=== PATIENT | female | born 1970 | race Caucasian/White ===

== ENCOUNTER 2017-02-11 10:49 | Emergency (ER) | payer OTHER ==
[~2017-02-11] VITALS: Ht 158.8 cm; Wt 59.0 kg
--- NOTE | ~2017-02-11 | CR181 ---
[facility] A Service of [facility] & [facility] RADIOLOGY TEXT RESULTS PATIENT: REBECCA PHILLIPS LOCATION: [facility] : 70 UNIT #: [id number] AGE: [address]: Susan Reilly APRN SEX: F ORDER DR: [id number] [facility] [address] [place], [place] [address] [id number] E MR#: [id number] Acc #: [id number] NAME: REBECCA PHILLIPS : 1970 SEX: F STUDY DATE/TIME: 02/11/2017 12:55 UNIT: [facility] ROOM: STUDY DESCRIPTION: CR Lumbar Spine 2 or 3 Views Attending Physician: Susan Reilly A.P.R.N. Ordering Physician: Ed John Villarreal M.D. Primary Care Physician: Stephania Daniels M.D. MEDICAL IMAGING REPORT This report is preliminary unless electronic signature is present EXAM Lumbar spine 3 views HISTORY Left-sided low back pain after falling off ladder this morning. FINDINGS There apparently are 6 [id number] lumbar segments. No fracture or malalignment. Disc spaces maintained. No spondylolysis on the basis. SI joints soft tissues appear normal. IMPRESSION Normal lumbar spine. Dictated by... Jacques Lynn M.D. THIS IS AN ELECTRONICALLY VERIFIED REPORT Jacques Lynn M.D. at 02/12/2017 1:32 PM SHAY/halina TD: 02/11/2017 22:38 JOB #: [id number] MEDICAL IMAGING REPORT Page 1 of 1 COPY
--- NOTE | ~2017-02-11 | CR126 ---
[facility] A Service of [facility] RADIOLOGY TEXT RESULTS PATIENT: REBECCA PHILLIPS LOCATION: [facility] : 70 UNIT #: [id number] AGE: [address]: Susan Reilly APRN SEX: F ORDER DR: [id number] [facility] [address] [place], [place] [address] [id number] E MR#: [id number] Acc #: [id number] NAME: REBECCA PHILLIPS : 1970 SEX: F STUDY DATE/TIME: 02/11/2017 11:27 UNIT: [facility] ROOM: STUDY DESCRIPTION: CR Foot Complete Min 3 View Lt Attending Physician: Susan Reilly A.P.R.N. Ordering Physician: Ed Doctor [id number] [facility] Primary Care Physician: Stephania Daniels M.D. MEDICAL IMAGING REPORT This report is preliminary unless electronic signature is present EXAM Left foot 3 views 02/11/2017 1127 hours HISTORY Patient fell off a ladder this morning. Pain and swelling in foot. Patient cannot move toes. Skin tear and redness at left knee. COMPARISON None. FINDINGS AP, lateral and oblique views demonstrate soft tissue swelling in the hindfoot with a comminuted nondisplaced fracture of the calcaneus with extension into the subtalar joint demonstrated. No other fracture seen. Follow up CT scan is recommended. IMPRESSION There is a comminuted nondisplaced fracture of the calcaneus in the mid and anterior portion which appears to extend into the subtalar joints. Further characterization with CT scan is recommended. STAT * RESULT Dictated by... Cecy Koch M.D. THIS IS AN ELECTRONICALLY VERIFIED REPORT Cecy Koch M.D. at 02/11/2017 2:34 PM SUSANA/elle TD: 02/11/2017 12:36 [facility] A Service of [facility] & [facility] RADIOLOGY TEXT RESULTS PATIENT: REBECCA PHILLIPS LOCATION: [facility] : 70 UNIT #: [id number] AGE: [address]: Susan Reilly APRN SEX: F ORDER DR: CHRISTIE #: [id number] MEDICAL IMAGING REPORT Page 1 of 1 COPY
--- NOTE | ~2017-02-11 | CR20 ---
[facility] A Service of [facility] & [facility] RADIOLOGY TEXT RESULTS PATIENT: REBECCA PHILLIPS LOCATION: [facility] : 70 UNIT #: [id number] AGE: [address]: Susan Reilly APRN SEX: F ORDER DR: [id number] [facility] [address] [place], [place] [address] [id number] E MR#: [id number] Acc #: [id number] NAME: REBECCA PHILLIPS : 1970 SEX: F STUDY DATE/TIME: 02/11/2017 11:27 UNIT: [facility] ROOM: STUDY DESCRIPTION: CR Ankle Min 3 Views Lt Attending Physician: Susan Reilly A.P.R.N. Ordering Physician: Ed Doctor [id number] [facility] Primary Care Physician: Stephania Daniels M.D. MEDICAL IMAGING REPORT This report is preliminary unless electronic signature is present EXAM Left ankle 3 views 02/11/2017 1127 hours HISTORY Patient fell off a ladder today. Ankle pain and swelling. COMPARISON Foot films 02/11/2017. FINDINGS AP, lateral and oblique views demonstrate marked lateral greater than medial soft tissue swelling with no fracture of the distal tibia or fibula. The talus is intact. There appears to be a comminuted nondisplaced fracture of the mid and anterior aspect of the calcaneus which is acute. Followup CT suggested. IMPRESSION There is lateral greater than medial soft tissue swelling with no fracture of the distal fibula or tibia. There is a comminuted nondisplaced fracture of the calcaneus which appears acute and does appear to extend into the subtalar joints. Followup CT of the calcaneus is recommended. STAT * RESULT Dictated by... Cecy Koch M.D. THIS IS AN ELECTRONICALLY VERIFIED REPORT Cecy Koch M.D. at 02/11/2017 2:34 PM SUSANA/elle [facility] A Service of [facility] & [facility] RADIOLOGY TEXT RESULTS PATIENT: REBECCA PHILLIPS LOCATION: [facility] : 70 UNIT #: [id number] AGE: [address]: Susan Reilly APRN SEX: F ORDER DR: TD: 02/11/2017 12:12 JOB #: [id number] MEDICAL IMAGING REPORT Page 1 of 1 COPY
--- NOTE | ~2017-02-11 | CT92 ---
[facility] A Service of [facility] & [facility] RADIOLOGY TEXT RESULTS PATIENT: REBECCA PHILLIPS LOCATION: [facility] : 70 UNIT #: [id number] AGE: [address]: Susan Reilly APRN SEX: F ORDER DR: [id number] [facility] [address] [place], [place] [address] [id number] E MR#: [id number] Acc #: [id number] NAME: REBECCA PHILLIPS : 1970 SEX: F STUDY DATE/TIME: 02/11/2017 14:13 UNIT: [place] ROOM: STUDY DESCRIPTION: CT Lower Ext Lt Wo Cont Attending Physician: Susan Reilly A.P.R.N. Ordering Physician: [facility] Primary Care Physician: Stephania Daniels M.D. MEDICAL IMAGING REPORT This report is preliminary unless electronic signature is present EXAM CT left lower extremity HISTORY Fell 5 days ago. Persistent foot and heel pain and swelling. Heel fracture on x-ray. TECHNIQUE Thin-section axial images performed through the left ankle and hindfoot with multiplanar reconstructions. No contrast. This CT exam was performed with one or more of the following radiation dose reduction techniques: automatic exposure control, adjustment of mA and/or kV according to patient size, and iterative reconstruction. FINDINGS Examination demonstrates a comminuted fracture of the calcaneus with extension of the fracture to the medial and lateral shafer of the body of the calcaneus and extension to the angle of Gissane and into the anterior process. Fracture does involve the medial sustentaculum talus but no depression of the sustentaculum. There is mild depression of the medial facet of the calcaneus with slight anterior depression and rotation but no incongruity at talar articular surface. Normal congruity at the posterior subtalar joint. Talus demonstrates an 11 mm lucency along the medial talar dome corresponding to an area of chondromalacia or osteochondral injury. No in situ fragment or loose body. Midfoot alignment appears maintained. The metatarsals appear normal. Generalized soft tissue swelling and edema about the foot and ankle. Visualized ankle tendons ligaments unremarkable. Fracture laterally does extend towards the peroneal tendons but no entrapment of the peroneal tendons. Edema and hemorrhage noted along the fracture line. [facility]. [facility] A Service of [facility] RADIOLOGY TEXT RESULTS PATIENT: REBECCA PHILLIPS LOCATION: [facility] : 70 UNIT #: [id number] AGE: [address]: Susan Reilly APRN SEX: F ORDER DR: IMPRESSION 1. Moderately comminuted fracture of the calcaneus, primarily involving the calcaneal body but extension into the anterior process as well as a component extending towards the sustentaculum talus. There is loss of Boehler's angle and depression and slight anterior rotation of the posterior facet of the calcaneus but no incongruity of the posterior subtalar joint. 2. 11 mm focus of chondromalacia medial talar dome. Dictated by... Jacques Lynn M.D. THIS IS AN ELECTRONICALLY VERIFIED REPORT Jacques Lynn M.D. at 02/12/2017 1:32 PM SHAY/alexandr TD: 02/12/2017 01:38 JOB #: [id number] MEDICAL IMAGING REPORT Page 1 of 1 COPY
--- NOTE | ~2017-02-11 | CR172 ---
[facility] A Service of [facility] & [facility] RADIOLOGY TEXT RESULTS PATIENT: REBECCA PHILLIPS LOCATION: [facility] : 70 UNIT #: [id number] AGE: [address]: Susan Reilly APRN SEX: F ORDER DR: [id number] [facility] [address] [place], [place] [address] [id number] E MR#: [id number] Acc #: [id number] NAME: REBECCA PHILLIPS : 1970 SEX: F STUDY DATE/TIME: 02/11/2017 1126 UNIT: [facility] ROOM: STUDY DESCRIPTION: CR Knee 3 Views Lt Attending Physician: Susan Reilly A.P.R.N. Ordering Physician: [facility] Primary Care Physician: Stephania Daniels M.D. MEDICAL IMAGING REPORT This report is preliminary unless electronic signature is present EXAM Left knee 3 views 02/11/2017 1126 hours HISTORY 46-year-old woman with pain, swelling of knee and ankle. Patient fell off a ladder this morning. COMPARISON 07/17/2006 FINDINGS AP, lateral and sunrise views demonstrate no joint effusion or acute fracture. There is mild deformity of the midportion of the patella where patient had a patellar fracture in 2005. This is chronic change. IMPRESSION No joint effusion or acute fracture. There is some deformity in the midportion of the patella at site of prior healed fracture. This patellar fracture was acute on the films of 07/17/2006. Dictated by... Cecy Koch M.D. THIS IS AN ELECTRONICALLY VERIFIED REPORT Cecy Koch M.D. at 02/11/2017 6:53 PM SUSANA/bret TD: 02/11/2017 18:11 JOB #: [id number] MEDICAL IMAGING REPORT Page 1 of 1 COPY
[~2017-02-11 10:49] MED LIST: VICODIN 5/1 TAB 5/50 PO
== END 2017-02-11 16:02 | disposition home or self-care (01) ==
LOC: CFTX 10:49 → CED 10:49 → CFTX 11:46
DX: S92.025A Nondisplaced fracture of anterior process of left calcaneus, initial encounter for closed fracture (principal); S80.02XA Contusion of left knee, initial encounter; F31.9 Bipolar disorder, unspecified; F17.210 Nicotine dependence, cigarettes, uncomplicated; W18.39XA Other fall on same level, initial encounter; Y92.098 Other place in other non-institutional residence as the place of occurrence of the external cause
CPT/HCPCS: 29515; 72100; 73562; 73610; 73630; 73700; 96372; 99284; J1885; J1956